=== PATIENT | male | born 2000 | race Caucasian/White ===

== ENCOUNTER 2023-06-01 10:27 | Emergency (ER) | payer SELFPAY ==
[~2023-06-01] VITALS: Ht 154.9 cm; Wt 61.0 kg
[2023-06-01 10:46] VITALS: O2SAT 98
[2023-06-01] MEDS ORDERED: HYDR-4233 TP (11:44)
[2023-06-01 12:10] VITALS: BP 123/76; PULSE 67; RESP 18; TEMP 98.2
== END 2023-06-01 12:11 | disposition home or self-care (01) ==
LOC: ER 10:27
DX: R21 Rash and other nonspecific skin eruption (principal)
CPT/HCPCS: 99282